=== PATIENT | female | born 1985 | race Caucasian/White ===

== ENCOUNTER 2023-04-04 09:23 | Outpatient (CLI) | payer OTHER, SELFPAY | END 2023-04-04 09:24 | disposition home or self-care (01) | LOC: NFLDREF 04-05 00:52 | PROVIDERS: PCP Physician Assistant Medical; Referring Provider Physician Assistant Medical; Visit Provider Physician Assistant Medical | DX: Z00.00 Encounter for general adult medical examination without abnormal findings (principal); I10 Essential (primary) hypertension; E66.9 Obesity, unspecified; Z13.0 Encounter for screening for diseases of the blood and blood-forming organs and certain disorders involving the immune mechanism; Z13.6 Encounter for screening for cardiovascular disorders | CPT/HCPCS: 80053; 80061; 84443 ==

== ENCOUNTER 2024-01-16 07:29 | Outpatient (CLI) | payer OTHER, SELFPAY ==
--- NOTE | 2024-01-16 07:45 | MM_ITS ---
Patient: WOJCIECH SOSA Facility:?[facility] Patient ID:?[id number] Site Patient ID:?[id number] Site :?[id number] Study:?XRay-Breast Bilateral 3D W/CAD-01/16/2024 8:27:22 AM Ordering Physician:Carol Chaves Final Report: BILATERAL SCREENING MAMMOGRAM WITH COMPUTER-AIDED DETECTION AND TOMOSYNTHESIS TECHNIQUE: CC and MLO views were obtained. These mammographic images have been obtained using full-field digital technique. These mammographic images were interpreted with the benefit of computer-aided detection. Breast Tomosynthesis was used in this interpretation. COMPARISON FILM: Baseline. FINDINGS: There are scattered areas of fibroglandular density. IMPRESSION: There is no radiographic evidence for malignancy. ASSESSMENT: BI-RADS Category 1: Negative RECOMMENDATION: Routine screening mammogram in 1 year. A lay language report of this examination will be provided to the patient. Smith Ramos M.D. Diagnostic Radiologist [email or web address] ADRIANNE/sp R& Transcribed: 1:46 p.m. SP/Dictated by: Smith Ramos MD @ 01/16/2024 9:36:00 AM Signed by:?Smith Ramos MD @01/16/2024 3:07:21 PM (Electronic Signature)
== END 2024-01-16 07:30 | disposition home or self-care (01) ==
LOC: MAMMO 07:30
PROVIDERS: PCP Physician Assistant Medical; Visit Provider Physician Assistant Medical
DX: Z12.31 Encounter for screening mammogram for malignant neoplasm of breast (principal)
CPT/HCPCS: 77063; 77067

== ENCOUNTER 2024-06-18 10:46 | Outpatient (CLI) | payer OTHER, SELFPAY | END 2024-06-18 10:47 | disposition home or self-care (01) | LOC: LKVREF 10:47 | PROVIDERS: PCP Physician Assistant Medical; Visit Provider Physician Assistant Medical | DX: I10 Essential (primary) hypertension (principal); Z13.29 Encounter for screening for other suspected endocrine disorder; Z13.220 Encounter for screening for lipoid disorders | CPT/HCPCS: 80053; 80061; 84443 ==